=== PATIENT | male | born 1950 ===

== ENCOUNTER 2018-06-20 12:14 | Outpatient (CLI) | payer OTHER | END 2018-06-20 12:15 | disposition home or self-care (01) | LOC: C.LAB 12:14 | DX: E11.9 Type 2 diabetes mellitus without complications (principal); I10 Essential (primary) hypertension; E78.5 Hyperlipidemia, unspecified; Z68.34 Body mass index [BMI] 34.0-34.9, adult; Z13.9 Encounter for screening, unspecified ==

== ENCOUNTER 2018-07-18 11:39 | Outpatient (CLI) | payer OTHER | END 2018-07-18 11:40 | disposition home or self-care (01) | LOC: C.LAB 11:39 | DX: Z09 Encounter for follow-up examination after completed treatment for conditions other than malignant neoplasm (principal) ==

== ENCOUNTER 2018-07-21 10:33 | Outpatient (CLI) | payer OTHER | END 2018-07-21 10:34 | disposition home or self-care (01) | LOC: C.USIC 10:34 | DX: R80.9 Proteinuria, unspecified (principal) ==